=== PATIENT | female | born 1950 | race Caucasian/White ===

== ENCOUNTER → 2018-01-10 | Outpatient (CLI) | payer MEDICARE ==
--- NOTE | 2018-01-10 14:22 | Diagnostic Imaging Report ---
PROCEDURE:BIOPSY THYROID FNA COMPARISON:Outside hospital thyroid ultrasound 12/17/17. INDICATIONS:Bilateral thyroid nodules FINDINGS: Written and verbal consent were obtained. Patient was placed in the supine position. Preliminary ultrasound demonstrated dominant left thyroid lobe nodule and a dominant right thyroid lobe nodule. A safe entry route to the left thyroid nodule was identified and the overlying skin was prepped and draped in usual sterile fashion. Lidocaine 1% was used for local pain control. A 25 gauge needle attached to syringe was advanced into the nodule and four passes were performed of fine needle aspiration. Needle was removed. Samples were provided to pathology who confirmed that the samples were adequate for diagnosis. Subsequently, a safe entry route to the right thyroid nodule was identified. Lidocaine 1% was used for local pain control. A 25 gauge needle attached to syringe was advanced into the nodule and four passes were performed of fine needle aspiration. Samples were provided to pathology who confirmed that the samples were adequate for diagnosis. Sterile bandage was placed. There were no immediate post-procedural complications. CONCLUSION: Bilateral thyroid nodule fine needle aspiration with ultrasound guidance as above. Dictated by: BRYANT MENA M.D. on 01/10/2018 at 14:27 Electronically approved by: BRYANT MENA M.D. on 01/10/2018 at 14:27
--- NOTE | 2018-01-10 14:26 | Diagnostic Imaging Report ---
PROCEDURE: Bilateral thyroid nodule fine needle aspiration with ultrasound guidance COMPARISON: Outside hospital thyroid ultrasound 12/17/17. INDICATIONS: Bilateral thyroid nodules FINDINGS: Written and verbal consent were obtained. Patient was placed in the supine position. Preliminary ultrasound demonstrated dominant left thyroid lobe nodule and a dominant right thyroid lobe nodule. A safe entry route to the left thyroid nodule was identified and the overlying skin was prepped and draped in usual sterile fashion. Lidocaine 1% was used for local pain control. A 25 gauge needle attached to syringe was advanced into the nodule with ultrasound and four passes were performed of fine needle aspiration. Needle was removed. Samples were provided to pathology who confirmed that the samples were adequate for diagnosis. Subsequently, a safe entry route to the right thyroid nodule was identified. Lidocaine 1% was used for local pain control. A 25 gauge needle attached to syringe was advanced into the nodule with ultrasound guidance and four passes were performed of fine needle aspiration. Samples were provided to pathology who confirmed that the samples were adequate for diagnosis. Sterile bandage was placed. There were no immediate post-procedural complications. CONCLUSION: Bilateral thyroid nodule fine needle aspiration with ultrasound guidance as above. Electronically approved by: BRYANT MENA M.D. on 01/10/2018 at 14:31
--- NOTE | 2018-01-10 14:27 | Diagnostic Imaging Report ---
PROCEDURE: BIOPSY THYROID FNA COMPARISON: Outside hospital thyroid ultrasound 12/17/17. INDICATIONS: Bilateral thyroid nodules FINDINGS: Written and verbal consent were obtained. Patient was placed in the supine position. Preliminary ultrasound demonstrated dominant left thyroid lobe nodule and a dominant right thyroid lobe nodule. A safe entry route to the left thyroid nodule was identified and the overlying skin was prepped and draped in usual sterile fashion. Lidocaine 1% was used for local pain control. With ultrasound guidance, a 25 gauge needle attached to syringe was advanced into the nodule and four passes were performed of fine needle aspiration. Needle was removed. Samples were provided to pathology who confirmed that the samples were adequate for diagnosis. Subsequently, a safe entry route to the right thyroid nodule was identified. Lidocaine 1% was used for local pain control. With ultrasound guidance, a 25 gauge needle attached to syringe was advanced into the nodule and four passes were performed of fine needle aspiration. Samples were provided to pathology who confirmed that the samples were adequate for diagnosis. Sterile bandage was placed. There were no immediate post-procedural complications. CONCLUSION: Bilateral thyroid nodule fine needle aspiration with ultrasound guidance as above. Electronically approved by: BRYANT MENA M.D. on 01/10/2018 at 14:32
--- NOTE | 2018-01-10 14:28 | Diagnostic Imaging Report ---
PROCEDURE:ULTRASOUND GUIDANCE FOR PROCEDURE COMPARISON:None. INDICATIONS:Thyroid Mass of Unclear Etiology FINDINGS/CONSCLUSION: Please see dictation from bilateral thyroid nodule FNA report. Dictated by: BRYANT MENA M.D. on 01/10/2018 at 14:33 Electronically approved by: BRYANT MENA M.D. on 01/10/2018 at 14:33
== END ==
LOC: US 12:09
PROVIDERS: ATTEND Family Medicine
DX: E07.89 Other specified disorders of thyroid (principal)
CPT/HCPCS: 10022; 76942; 88112; 88172; 88173; 88305

== ENCOUNTER → 2018-04-07 | Outpatient (CLI) | payer MEDICARE ==
--- NOTE | 2018-04-07 12:08 | Diagnostic Imaging Report ---
EXAM: Thyroid Ultrasound INDICATION: ^[id number] ^[id number] ^MULTIPLE THYROID NODULES COMPARISON: Thyroid ultrasound 01/10/2018 TECHNIQUE: Transverse and sagittal images were obtained of the thyroid gland. FINDINGS: Thyroid gland: Size: Right lobe: 4.6 x 2.3 x 1.5 cm, mildly increased in size Left lobe: 4.8 x 2.5 x 2.7 cm, mildly increased in size Isthmus: 0.4 cm, Normal in size Appearance: Heterogeneous echotexture with mildly increased vascularity Masses/Nodules: Right lobe: 1.2 cm solid (2 pts) nodule in the superior pole with smooth margin (0 pts), [id number] (0 pts), isoechoic (1 pt), and no calcifications (0 pts). Previously 1.2 cm. TR3a (<1.5 cm): No follow-up. 0.7 cm solid (2 pts) nodule in the superior pole with smooth margin (0 pts), [id number] (0 pts), isoechoic (1 pt), and no calcifications (0 pts). Previously 0.7 cm. TR3a (<1.5 cm): No follow-up. 0.4 cm cystic (0 pts) nodule in the interpolar region with smooth margin (0 pts), [id number]-aciq-etao (0 pts), hypoechoic (2 pts), and no calcifications (0 pts). Previously 0.4 cm. TR2, Not Suspicious: No FNA. Left lobe: 3.1 cm almost completely solid (2 pts) nodule in the interpolar region with smooth margin (0 pts), [id number] (0 pts), hyperechoic (1 pt), and punctate echogenic foci (3 pts). Previously 3.1 cm. TR4c (>1.5 cm), Moderately Suspicious: FNA. Parathyroid: No focal parathyroid masses. IMPRESSION: Bilateral thyroid nodules. The right thyroid nodules do not need further follow-up. The large left complex thyroid nodule is moderately suspicious but remains stable. Consider FNA if not obtained yet. TR4c (>1.5 cm), Moderately Suspicious: FNA. Consider either repeat FNA or follow-up in 6 months. TI-RADS Lexicon: TR1, Benign: No FNA TR2, Not Suspicious: No FNA. TR3a (<1.5 cm): No follow-up. TR3b (1.5-2.5 cm), Mildly Suspicious: Follow at 1, 3, 5 years. TR3c (>2.5 cm), Mildly Suspicious: FNA. TR4a (<1.0 cm): No follow-up. TR4b (1.0-1.5 cm), Moderately Suspicious: Follow at 1, 2, 3, 5 years. TR4c (>1.5 cm), Moderately Suspicious: FNA. TR5a (<0.5 cm): No follow-up. TR5b (0.5-1.0 cm), Highly Suspicious: Follow at 1, 2, 3, 4, 5 years. TR5c (>1.0 cm), Highly Suspicious: FNA. *Rebiopsy if new suspicious features *No recommendation at this time for significant interval growth. Nodule Characteristics: * Benign features: cystic, hyperechoic, comet-tail artifact, complete halo * Minor suspicious features: solid, hypoechoic, other calcifications * Major suspicious features: microcalcifications, marked hypoechoic (less than strap muscle), suspicious lymph nodes, taller than wide, lobulated or ill-defined margins. Literature: ACR Thyroid Imaging, Reporting and Data System (TI-RADS): White Paper of the ACR TI-RADS Committee. J Am Yessenia Radiol 2017. Signed by: Dr. Kyung Taylor M.D. on 04/07/2018 12:04 PM
== END ==
LOC: US 10:25
PROVIDERS: ATTEND Otolaryngology
DX: E04.2 Nontoxic multinodular goiter (principal)
CPT/HCPCS: 76536

== ENCOUNTER → 2018-09-22 | Outpatient (CLI) | payer MEDICARE ==
--- NOTE | 2018-09-22 09:34 | Diagnostic Imaging Report ---
EXAM: US THYROID DATE: 09/22/2018 7:49 AM INDICATION: Multiple thyroid nodules COMPARISON: Thyroid ultrasound, 04/07/2018 FINDINGS: Grayscale and color flow Doppler ultrasound of the thyroid was performed. Right lobe: 4.9 x 2.0 x 2.0 cm. Homogeneous texture. Normal color flow vascularity. Nodules: Mid thyroid: 1.3 x 1.0 x 1.0 cm. Solid, isoechoic, wide, smooth, no echogenic foci. TR3a. Mid thyroid: 0.7 x 0.5 x 0.7 cm. Solid, isoechoic, wide, smooth, no echogenic foci. TR3a. Mid thyroid: 0.5 x 0.3 x 0.4 cm. Solid, hyperechoic, wide, smooth, no echogenic foci. TR3a. Left lobe: 5.3 x 2.4 x 3.0 cm. Heterogeneous texture. Normal color flow vascularity. Nodules: Upper pole: 0.9 x 0.8 x 0.8 cm. Solid, isoechoic, wide, ill-defined margins, no echogenic foci. TR3a. Mid to lower pole: 3.3 x 2.0 x 2.5 cm (previous 3.1 x 2.0 x 2.6 cm). Mixed density, hyperechoic, wide, smooth, punctate echogenic foci. TR4c. IMPRESSION: 1. Stable appearance of dominant mass in the left thyroid lobe. Although the mass meets criteria for biopsy, it has been stable since 04/07/2018. Apparently, biopsy has been performed previously. Recommend correlation with pathology from previous biopsy and, if appropriate based on those results, continued follow-up. 2. Multiple other nodules in both thyroid lobes do not meet criteria for biopsy. ACR TI-RADS Lexicon: TR1, Benign: No FNA TR2, Not Suspicious: No FNA. TR3a (<1.5 cm): No follow-up. TR3b (1.5-2.5 cm), Mildly Suspicious: Follow at 1, 3, 5 years. TR3c (>2.5 cm), Mildly Suspicious: FNA. TR4a (<1.0 cm): No follow-up. TR4b (1.0-1.5 cm), Moderately Suspicious: Follow at 1, 2, 3, 5 years. TR4c (>1.5 cm), Moderately Suspicious: FNA. TR5a (<0.5 cm): No follow-up. TR5b (0.5-1.0 cm), Highly Suspicious: Follow at 1, 2, 3, 4, 5 years. TR5c (>1.0 cm), Highly Suspicious: FNA. Literature: ACR Thyroid Imaging, Reporting and Data System (TI-RADS): White Paper of the ACR TI-RADS Committee. J Am Yessenia Radiol 2017. Signed by: Dr. Lokesh Chavez M.D. on 09/22/2018 9:31 AM
== END ==
LOC: US 07:41
PROVIDERS: ATTEND Otolaryngology
DX: E04.2 Nontoxic multinodular goiter (principal)
CPT/HCPCS: 76536

== ENCOUNTER → 2019-05-18 | Outpatient (CLI) | payer MEDICARE | LOC: MAMMO 13:14 | PROVIDERS: ATTEND Family Medicine | DX: Z12.31 Encounter for screening mammogram for malignant neoplasm of breast (principal) | CPT/HCPCS: 77067 ==

== ENCOUNTER → 2019-05-31 | Day surgery (SDC) | payer MEDICARE ==
[2019-05-30 12:58] LABS: BASOPHILS % 0.5 % (0.0-1.0); EOSINOPHILS # (AUTO) 0.1 (0.0-0.4); EOSINOPHILS % 0.8 % (0.0-6.0); HEMATOCRIT 39.6 % (34.2-44.1); HEMOGLOBIN 12.7 g/dL (12.0-16.0); LYMPHOCYTES # (AUTO) 2.9 (1.0-3.2); LYMPHOCYTES % 38.1 % (18.0-39.1); MEAN CORPUSCULAR HEMOGLOBIN 28.6 pg (28-32); MEAN CORPUSCULAR HGB CONC 32.1 g/dL (31-35); MEAN CORPUSCULAR VOLUME 89.2 fL (81-99); MONOCYTES # (AUTO) 0.4 (0.2-0.8); MONOCYTES % 5.3 % (4.4-11.3); NEUTROPHILS # (AUTO) 4.2 (2.1-6.9); NEUTROPHILS % 54.9 % (38.7-80.0); PLATELET COUNT 256 x10e3/uL (140-360); RED BLOOD COUNT 4.44 x10e6/uL (3.6-5.1)
[~2019-05-31] MED LIST: CELEBREX100 MG PO; FENTANYL CITRATE/PF 100MCG/2 ML INJ ONE; GABAPENTIN300 MG PO; GLUCAGON FOR INJ 1 MG VIAL ONE; HYOSCYAMINE 0.125 MG TAB ONE; MIDAZOLAM HCL 2 MG/2 ML VIAL ONE; ONDANSETRON HCL INJ 2MG/ML 2ML 2 MG/ML VIAL ONE; PROPOFOL IV EMULSION 10 MG/ML 50 ML VIAL ONE
[2019-05-31 14:35] VITALS: BP 136/79
--- NOTE | 2019-05-31 20:54 | Operative Report ---
DATE OF PROCEDURE: 05/31/2019 SURGEON: Milo Ames MD PROCEDURE: Colonoscopy and polypectomy with hemoclipping. INDICATIONS FOR COLONOSCOPY: Surveillance colonoscopy, personal history of colon polyps. MEDICATIONS: The patient was done under MAC, please see anesthesiologist's note. PROCEDURE IN DETAIL: With the patient in left lateral decubitus position, a flexible fiberoptic Olympus colonoscope was inserted into the rectum with ease and advanced all the way to the cecum. The patient has diffuse and severe melanosis coli. An approximately 1.5 cm sessile polyp was noted at the junction of the cecum and the ascending colon and that was removed per hot snare polypectomy and site was hemoclipped x2. The rest of the ascending colon grossly appeared to be within normal limits. Two polyps were hot snared from the transverse colon. The descending, sigmoid other than for diverticulosis grossly was unremarkable. The scope was then retroflexed into the distal rectum and small internal hemorrhoids were noted, none of which was actively bleeding. The scope was then straightened out, it was subsequently withdrawn. The patient tolerated the procedure well. IMPRESSION: 1. Melanosis coli. 2. Cecal polyp approximately 1.5 cm in size, sessile, hot snared and hemoclipped x2. 3. Transverse colon polyps x2, hot snared. 4. Diverticulosis. 5. Internal hemorrhoids, none actively bleeding. PLAN: Follow up histology. Initiate high-fiber, low-fat diet. Initiate high-fiber supplement. The patient might benefit from a followup colonoscopy in 3 years. Milo Ames MD [facility] [place] /[id number] cc: Reese Barakat DO
--- OUTSIDE RECORDS SUMMARY | 2019-06-02 13:55 | XMS REPORT ---
Author Author [facility] Address Unknown Phone Unavailable Care Team Providers Care Final Assembler Name Role Phone NIRALI VENCES Unavailable Unavailable LAVON CAMPOS Unavailable Unavailable LEIF VENCES Unavailable Unavailable Problems This patient has no known problems. Allergies, Adverse Reactions, Alerts This patient has no known allergies or adverse reactions. Medications This patient has no known medications. Results Test Description Test Time Test Comments Text Results Atomic Results Result Comments MAMMOGRAPHY DIGITAL SCR BILAT 2019-05-18 14:18:00 [facility] [address] [place] [address] Patient Name: LUCERO BROCK MR #: [id number] : 1950 Age/Sex: 68/F Req #: [id number] Adm Physician: Ordered by: VENCES ANDREW DO Report #: [id number] Location: MAMMO Room/Bed: Procedure: [id number] MG/MAMMOGRAPHY DIGITAL SCR BILAT Exam Date: 05/18/19 Exam Time: 1322 REPORT STATUS: Signed #[id number] - [id number] #BILATERAL DIGITAL SCREENING MAMMOGRAM WITH CAD: 05/18/2019 CLINICAL: Routine screening. Comparison is made to exams dated: 09/18/2015 mammogram, 09/04/2011 mammogram, 09/03/2009 mammogram and 08/16/2009 mammogram - [facility]. Current study contains 4 films. There are scattered fibroglandular elements in both breasts. Current study was also evaluated with a Computer Aided Detection (CAD) system. Benign appearing calcifications are noted bilaterally. No significant masses, calcifications, or other findings are seen in either breast. IMPRESSION: BENIGN There is no mammographic evidence of malignancy. A 1 year screening mammogram is recommended. The patient will be notified by letter of the results. NATI WALTERS M.D. ct/obdulia:05/31/2019 12:00:54 Ceramics Machine Operator: Tesha DWYER(Bin)(Bree), [facility] letter sent: Normal Exam Mammogram BI-RADS: 2 Benign Dictated By: NATI velásquezy Signed By: NATI WALTERS MD on 05/31/19 1200 Transcribed By: OBDULIA on 05/31/19 1200 COPY TO: NIRALI VENCES DO US THYROID 2018-09-22 09:00:00 [place] [address] Patient Name: LUCERO BROCK MR #: [id number] : 1950 Age/Sex: 67/F Req #: [id number] Adm Physician: Ordered by: ANDRES RUSSELL, LAVON RUSSELL Report #: [id number] Location: Room/Bed: Procedure: [id number] US/US THYROID Exam Date: 09/22/18 Exam Time: 0816 REPORT STATUS: Signed EXAM: US THYROID DATE: 09/22/2018 7:49 AM INDICATION: Mu ltiple thyroid nodules COMPARISON: Thyroid ultrasound, 04/07/2018 FINDINGS: Grayscale and color flow Doppler ultrasound of the thyroid was performed. Right lobe: 4.9 x 2.0 x 2.0 cm. Homogeneous texture. Normal color flow vascularity. Nodules: Mid thyroid: 1.3 x 1.0 x 1.0 cm. Solid, isoechoic, wide, smooth, no echogenic foci. TR3a. Mid thyroid: 0.7 x 0.5 x 0.7 cm. Solid, isoechoic, wide, smooth, no echogenic foci. TR3a. Mid thyroid: 0.5 x 0.3 x 0.4 cm. Solid, hyperechoic, wide, smooth, no echogenic foci. TR3a. Left lobe: 5.3 x 2.4 x 3.0 cm. Heterogeneous texture. Normal color flow vascularity. Nodules: Upper pole: 0.9 x 0.8 x 0.8 cm. Solid, isoechoic, wide, ill-defined margins, no echogenic foci. TR3a. Mid to lower pole: 3.3 x 2.0 x 2.5 cm (previous 3.1 x 2.0 x 2.6 cm). Mixed density, hyperechoic, wide, smooth, punctate echogenic foci. TR4c. IMPRESSION: 1. Stable appearance of dominant mass in the left thyroid lobe. Although the mass meets criteria for biopsy, it has been stable since 04/07/2018. Apparently, biopsy has been performed previously. Recommend correlation with pathology from previous biopsy and, if appropriate based on those results, continued follow-up. 2. Multiple other nodules in both thyroid lobes do not meet criteria for biopsy. ACR TI-RADS Lexicon: TR1, Benign: No FNA TR2, Not Suspicious: No FNA. TR3a (<1.5 cm): No follow-up. TR3b (1.5-2.5 cm), Mildly Suspicious: Follow at 1, 3, 5 years. TR3c (>2.5 cm), Mildly Suspicious: FNA. TR4a (<1.0 cm): No follow-up. TR4b (1.0-1.5 cm), Moderately Suspicious: Follow at 1, 2, 3, 5 years. TR4c (>1.5 cm), Moderately Suspicious: FNA. TR5a (<0.5 cm): No follow-up. TR5b (0.5-1.0 cm), Highly Suspicious: Follow at 1, 2, 3, 4, 5 years. TR5c (>1.0 cm), Highly Suspicious: FNA. Literature: ACR Thyroid Imaging, Reporting and Data System (TI-RADS): White Paper of the ACR TI-RADS Committee. J Am Yessenia Radiol 2017. Signed by: Dr. Lokesh Chi M.D. on 09/22/2018 9:31 AM Dictated By: LOKESH CHI MD 0 Transcribed By: ALEJANDRA on 09/22/18930 COPY TO: LAVON CAMPOS THYROID 2018-04-07 11:54:00 [place] [address] Patient Name: LUCERO BROCK MR #: [id number] : 1950 Age/Sex: 67/F Req #: [id number] [facility] Physician: Ordered by: LAVON CAMPOS MD, MD Report #: [id number] Location: US Room/Bed: Procedure: [id number] US/US THYROID Exam Date: 04/07/18 Exam Time: 1049 REPORT STATUS: Signed EXAM: Thyroid Ultrasound INDICATION: [id number] MULTIPLE THYROID NODULES COMPARISON: Thyroid ultrasound 01/10/2018 TECHNIQUE: Transverse and sagittal images were obtained of the thyroid gland. FINDINGS: Thyroid gland: Size: Right lobe: 4.6 x 2.3 x 1.5 cm, mildly increased in size Left lobe: 4.8 x 2.5 x 2.7 cm, mildly increased in size Isthmus: 0.4 cm, Normal in size Appearance: Heterogeneous echotexture with mildly increased vascularity Masses/Nodules: Right lobe: 1.2 cm solid (2 pts) nodule in the superior pole with smooth margin (0 pts), kdumk-adai-xhuz (0 pts), isoechoic (1 pt), and no calcifications (0 pts). Previously 1.2 cm. TR3a (<1.5 cm): No follow-up. 0.7 cm solid (2 pts) nodule in the superior pole with smooth margin (0 pts), keuxb-hveb-jsqo (0 pts), isoechoic (1 pt), and no calcifications (0 pts). Previously 0.7 cm. TR3a (<1.5 cm): No follow-up. 0.4 cm cystic (0 pts) nodule in the interpolar region with smooth margin (0 pts), isbll-hcys-kesk (0 pts), hypoech oic (2 pts), and no calcifications (0 pts). Previously 0.4 cm. TR2, Not Suspicious: No FNA. Left lobe: 3.1 cm almost completely solid (2 pts) nodule in the interpolar region with smooth margin (0 pts), ibmos-gssg-fxtm (0 pts), hyperechoic (1 pt), and punctate echogenic foci (3 pts). Previously 3.1 cm. TR4c (>1.5 cm), Moderately Suspicious: FNA. Parathyroid: No focal parathyroid masses. IMPRESSION: Bilateral thyroid nodules. The right thyroid nodules do not need further follow-up. The large left complex thyroid nodule is moderately suspicious but remains stable. Consider FNA if not obtained yet. TR4c (>1.5 cm), Moderately Suspicious: FNA. Consider either repeat FNA or follow-up in 6 months. TI-RADS Lexicon: TR1, Benign: No FNA TR2, Not Suspicious: No FNA. TR3a (<1.5 cm): No follow-up. TR3b (1.5-2.5 cm), Mildly Suspicious: Follow at 1, 3, 5 years. TR3c (>2.5 cm), Mildly Suspicious: FNA. TR4a (<1.0 cm): No follow-up. TR4b (1.0-1.5 cm), Moderately Suspicious: Follow at 1, 2, 3, 5 years. TR4c (>1.5 cm), Moderately Suspicious: FNA. TR5a (<0.5 cm): No follow-up. TR5b (0.5-1.0 cm), Highly Suspicious: Follow at 1, 2, 3, 4, 5 years. TR5c (>1.0 cm), Highly Suspicious: FNA. *Rebiopsy if new suspicious features *No recommendation at this time for significant interval growth. Nodule Characteristics: * Benign features: cystic, hyperechoic, comet-tail artifact, complete halo * Minor suspicious features: solid, hypoechoic, other calcifications * Major suspicious features: microcalcifications, marked hypoechoic (less than strap muscle), suspicious lymph nodes, taller than wide, lobulated or ill-defined margins. Literature: ACR Thyroid Imaging, Reporting and Data System (TI- RADS): White Paper of the ACR TI-RADS Committee. J Am Yessenia Radiol 2017. Signed by: Dr. Kyung Hobson M.D. on 04/07/2018 12:04 PM Dictated By: KYUNG HOBSON MD 03 Transcribed By: ALEJANDRA on 04/07/181203 COPY TO: LAVON CAMPOS US GUIDANCE FOR PROCEDURE 2018-01-10 14:33:00 [place] [address] Patient Name: LUCERO BROCK MR #: [id number] : 1950 Age/Sex: 67/F Req #: [id number] Adm Physician: Ordered by: LEIF VENCES DO Report #: [id number] Location: US Room/Bed: Procedure: [id number] US/US GUIDANCE FOR PROCEDURE Exam Date: Exam Time: REPORT STATUS: Signed PROCEDURE: ULTRASOUND GUIDANCE FOR PROCEDURE COMPARISON: None. INDICATIONS: Thyroid Mass of Unclear Etiology FINDINGS/CONSCLUSION: Please see dictation from bilateral thyroid nodule FNA report. Dictated by: BRYANT MENA M.D. on 01/10/2018 at 14:33 Electronically approved by: BRYANT MENA M.D. on 01/10/2018 at 14:33 Dictated By: BRYANT MENA MD 1433 Transcribed By: CHEY on 01/10/18 1433 COPY TO: LEIF VENCES DO FNA THYROID 2018-01-10 14:32:00 [place] [address] Patient Name: LUCERO BROCK MR #: [id number] : 1950 Age/Sex: 67/F Req #: [id number] Adm Physician: Ordered by: LEIF VENCES DO Report #: [id number] Location: US Room/Bed: Procedure: US/FNA THYROID Exam Date: Exam Time: REPORT STATUS: Signed PROCEDURE: BIOPSY THYROID FNA COMPARISON: Outside hospital thyroid ultrasound 12/17/17. INDICATIONS: Bilateral thyroid nodules FINDINGS: Written and verbal consent were obtained. Patient was placed in the supine position. Preliminary ultrasound demonstrated dominant left thyroid lobe nodule and a dominant right thyroid lobe nodule. A safe entry route to the left thyroid nodule was identified and the overlying skin was prepped and draped in usual sterile fashion. Lidocaine 1% was used for local pain control. With ultrasound guidance, a 25 gauge needle attached to syringe was advanced into the nodule and four passes were performed of fine needle aspiration. Needle was removed. Samples were provided to pathology who confirmed that the samples were adequate for diagnosis. Subsequently, a safe entry route to the right thyroid nodule was identified. Lidocaine 1% was used for local pain control. With ultrasound guidance, a 25 gauge needle attached to syringe was advanced into the nodule and four passes were performed of fine needle aspiration. Samples were provided to pathology who confirmed that the samples were adequate for diagnosis. Sterile bandage was placed. There were no im mediate post-procedural complications. CONCLUSION: Bilateral thyroid nodule fine needle aspiration with ultrasound guidance as above. Electronically approved by: BRYANT MENA M.D. on 01/10/2018 at 14:32 Dictated By: BRYANT MENA MD 31 Transcribed By: CHEY on 01/10/18 143 COPY TO: LEIF VENCES DO US GUIDANCE FOR PROCEDURE 2018-01-10 14:31:00 [place] [address] Patient Name: LUCERO BROCK MR #: [id number] : 1950 Age/Sex: 67/F Req #: [id number] Adm Physician: Ordered by: LEIF VENCES DO Report #: [id number] Location: US Room/Bed: Procedure: US/US GUIDANCE FOR PROCEDURE Exam Date: Exam Time: REPORT STATUS: Signed PROCEDURE: Bilateral thyroid nodule fine needle aspiration with ultrasound guidance COMPARISON: Outside hospital thyroid ultrasound 12/17/17. INDICATIONS: Bilateral thyroid nodules FINDINGS: Written and verbal consent were obtained. Patient was placed in the supine position. Preliminary ultrasound demonstrated dominant left thyroid lobe nodule and a dominant right thyroid lobe nodule. A safe entry route to the left thyroid nodule was identified and the overlying skin was prepped and draped in usual sterile fashion. Lidocaine 1% was used for local pain control. A 25 gauge needle attached to syringe was advanced into the nodule with ultrasound and four passes were performed of fine needle aspiration. Needle was removed. Samples were provided to pathology who confirmed that the samples w ere adequate for diagnosis. Subsequently, a safe entry route to the right thyroid nodule was identified. Lidocaine 1% was used for local pain control. A 25 gauge needle attached to syringe was advanced into the nodule with ultrasound guidance and four passes were performed of fine needle aspiration. Samples were provided to pathology who confirmed that the samples were adequate for diagnosis. Sterile bandage was placed. There were no immediate post-procedural complications. CONCLUSION: Bilateral thyroid nodule fine needle aspiration with ultrasound guidance as above. Electronically approved by: BRYANT MENA M.D. on 01/10/2018 at 14:31 Dictated By: BRYANT MENA MD 1431 Transcribed By: CHEY on 01/10/18 1431 COPY TO: LEIF VENCES DO FNA THYROID 2018-01-10 14:27:00 [place] [address] Patient Name: LUCERO BROCK MR #: [id number] : 1950 Age/Sex: 67/F Req #: [id number] Adm Physician: Ordered by: LEIF VENCES DO Report #: [id number] Location: Room/Bed: Procedure: [id number] US/FNA THYROID Exam Date: Exam Time: REPORT STATUS: Signed PROCEDURE: BIOPSY THYROID FNA COMPARISON: Outside hospital thyroid ultrasound 12/17/17. INDICATIONS: Bilateral thyroid nodules FINDINGS: Written and verbal consent were obtained. Patient was placed in the supine position. Preliminary ultrasound demonstrated dominant left thyroid lobe nodule and a dominant right thyroid lobe nodule. A safe entry route to the left thyroid nodule was identified and the overlying skin was prepped and draped in usual sterile fashion. Lidocaine 1% was used for local pain control. A 25 gauge needle attached to syringe was advanced into the nodule and four passes were performed of fine needle aspiration. Needle was removed. Samples were provided to pathology who confirmed that the samples were adequate for diagnosis. Subsequently, a safe entry route to the right thyroid nodule was identified. Lidocaine 1% was used for local pain control. A 25 gauge needle attached to syringe was advanced into the nodule and four passes were performed of fine needle aspiration. Samples were provided to pathology who confirmed that the samples were adequate for diagnosis. Sterile bandage was placed. There were no immediate post-procedural complications. CONCLUSION: Bilateral thyroid nodule fine needle aspiration with ultrasound guidance as above. Dictated by: BRYANT MENA M.D. on 01/10/2018 at 14:27 Electronically approved by: BRYANT MENA M.D. on 01/10/2018 at 14:27 Dictated By: BRYANT MENA MD 1427 Transcribed By: CHEY on 01/10/18 1427 COPY TO: LEIF VENCES DO
== END | disposition home or self-care (01) ==
LOC: OR 09:36
PROVIDERS: ATTEND Internal Medicine Gastroenterology
DX: Z12.11 Encounter for screening for malignant neoplasm of colon (principal); Z86.010 Personal history of colon polyps; Z88.1 Allergy status to other antibiotic agents; Z68.41 Body mass index [BMI] 40.0-44.9, adult; R03.0 Elevated blood-pressure reading, without diagnosis of hypertension; K57.30 Diverticulosis of large intestine without perforation or abscess without bleeding; K64.8 Other hemorrhoids; K63.89 Other specified diseases of intestine; D12.3 Benign neoplasm of transverse colon; D12.0 Benign neoplasm of cecum; Z01.810 Encounter for preprocedural cardiovascular examination; Z01.812 Encounter for preprocedural laboratory examination
CPT/HCPCS: 36415; 45385; 85025; 88305; 93005; J1610; J2250; J2405; J2704; J3010; 45378; 45384

== ENCOUNTER → 2020-05-27 | Outpatient (CLI) | payer MEDICARE ==
[~2020-05-27] MED LIST changes: -FENTANYL CITRATE/PF 100MCG/2 ML INJ ONE; -GLUCAGON FOR INJ 1 MG VIAL ONE; -HYOSCYAMINE 0.125 MG TAB ONE; -MIDAZOLAM HCL 2 MG/2 ML VIAL ONE; -ONDANSETRON HCL INJ 2MG/ML 2ML 2 MG/ML VIAL ONE; -PROPOFOL IV EMULSION 10 MG/ML 50 ML VIAL ONE
== END ==
LOC: US 08:37
PROVIDERS: ATTEND Otolaryngology
DX: E04.2 Nontoxic multinodular goiter (principal)
CPT/HCPCS: 76536

== ENCOUNTER → 2020-05-27 | Outpatient (CLI) | payer MEDICARE | LOC: MAMMO 08:41 | PROVIDERS: ATTEND Family Medicine | DX: Z12.31 Encounter for screening mammogram for malignant neoplasm of breast (principal) | CPT/HCPCS: 77067 ==

== ENCOUNTER → 2020-06-24 | Outpatient (CLI) | payer MEDICARE | LOC: US 12:48 | PROVIDERS: ATTEND Otolaryngology | DX: E04.2 Nontoxic multinodular goiter (principal) | CPT/HCPCS: 10005; 10006; 88172; 88173; 88305 ==

== ENCOUNTER → 2020-08-12 | Outpatient (CLI) | payer MEDICARE | LOC: MRI 12:36 | PROVIDERS: ATTEND Pain Medicine Pain Medicine | DX: M25.461 Effusion, right knee (principal); S83.271A Complex tear of lateral meniscus, current injury, right knee, initial encounter; M71.21 Synovial cyst of popliteal space [Baker], right knee; M17.11 Unilateral primary osteoarthritis, right knee ==

== ENCOUNTER → 2022-01-02 | Outpatient (CLI) | payer MEDICARE | LOC: US 12:12 | PROVIDERS: ATTEND Otolaryngology | DX: E04.2 Nontoxic multinodular goiter (principal) | CPT/HCPCS: 10005; 10006; 88112; 88172; 88173; 88305 ==

== ENCOUNTER → 2024-05-26 | Outpatient (REF) | payer MEDICARE | LOC: MAMMO 10:40 | PROVIDERS: ATTEND Family Medicine | DX: Z12.31 Encounter for screening mammogram for malignant neoplasm of breast (principal) | CPT/HCPCS: 77067 ==